=== PATIENT | male | born 1960 | race Caucasian/White ===

== ENCOUNTER → 2016-08-27 | Outpatient (CLI) | payer MEDICARE, OTHER ==
[~2016-08-27] MED LIST: ACETAMINOPHEN325 MG NG; ALBUTEROL; ALBUTEROL17 GM NEB; ALENDRONATE SOD70 MG PO; ASPIRIN PO; BIAXIN GT; BISACODYL10 MG/SUPP PR; CALCIUM CITRATE PO; CALCIUM CITRATE1 T15 PEG; CETA-KLENZ SKI473 ML TOP; COLACE PO; DIASTAT10 MG PR; ERYTHROMYC200 MG/5 M PEG; FAMOTIDINE PO; FAST RELIEF LAX10 MG PR; FLAGYL GT; FLONASE 0.05% N16 G1; FLUOCINOLON118.28 M1 TOP; GAS RELIEF125 M1 NG; GAS X GT; GAS-X166 MG PO; GENTLE LAXATIVE10 MG RC; INVANZ1 G/VIA1 IV; ISORDIL10 MG PEG; ISOSORBIDE MONO10 MG GT; ISOSORBIDE MONO10 MG PO; KEPPRA1000 MG GT; KEPPRA1000 MG PEG; KEPPRA500 M2 DOB; KEPPRA500 MG PEG; METOPROLOL SUCC25 MG GT; METOPROLOL SUCC25 MG PEG; METOPROLOL TAR25 MG GT; MICONAZOLE28 GM TOP; MIRALAX17 G2 PO; MIRALAX17 GM DOB; MIRALAX255 GM GT; MONOKET10 MG GT; MULTI VITAMINS W1 MG PO; MYTAB; NEXIUM GT; NEXIUM40 MG/PACK NG; NITROSTAT0.4 MG SL; OMEGA 3 FISH OI1 CAP GT; OMEGA 3 FISH OI1 CAP PO; OMEGA-31000 M1 PO; OMEPRAZOLE20 M2 PO; OYSTER CALCIUM500 MG PO; PREVACID PO; PROBIOTIC1 EACH PO; PROTONIX PO; REGLAN PO; RISAMINE OINTM113 GM TOP; SELSUN BLUE 1%118 ML TOP; SENNA CONCENTR8.6 MG PO; SENNA S TABLET1 TAB PO; SENNA8.8 MG/5 M GT; SENNA8.8 MG/5 M PEG; SENNA8.8 MG/51 GT; SIMETHICONE125 MG GT; SOD BICARBONATE PO; TEGRETOL PO; TOPAMAX PO; TOPROL XL PO; TYLENOL325 M1 GT; VIBRAMYCIN100 M1 GT
== END | disposition home or self-care (01) ==
LOC: CSSDAY 10:47
DX: M81.0 Age-related osteoporosis without current pathological fracture (principal)
CPT/HCPCS: 96372; J0897

== ENCOUNTER → 2016-12-13 | Outpatient (CLI) | payer MEDICARE, OTHER ==
--- NOTE | ~2016-12-13 | US77 ---
[facility] A Service of [facility] RADIOLOGY TEXT RESULTS PATIENT: PIA HOLCOMB LOCATION: [facility] : 62 UNIT #: [id number] AGE: [address]: Rigo Tai MD SEX: M ORDER DR: [id number] [facility] [address] [place], [place] [address] [id number] O MR#: [id number] Acc #: [id number] NAME: PIA HOLCOMB : 1960 SEX: M STUDY DATE/TIME: 12/13/2016 13:09 UNIT: [facility] ROOM: STUDY DESCRIPTION: US Kidney Bilateral Complete Attending Physician: Rigo Tai Sr., M.D. Referring Physician: Rigo Tai Sr., M.D. Ordering Physician: Rigo Tai Sr., M.D. Primary Care Physician: Yolette Nolen M.D. MEDICAL IMAGING REPORT This report is preliminary unless electronic signature is present EXAM Renal ultrasound 12/13/2016 HISTORY Neurogenic bladder. Follow up for hydronephrosis. FINDINGS The right kidney measures 8.2 cm, while the left kidney measures 8.3 cm in longitudinal dimensions. There is no evidence of hydronephrosis or nephrolithiasis. No cystic or solid mass lesions were seen on either kidney and there is normal renal cortical echogenicity. Images of the bladder are normal. The bladder measured 7.44 cm x 5.41 cm x 7.44 cm for a total bladder volume of 156.8 cm/2. IMPRESSION Negative renal ultrasound. Dictated by... Jarvis Zelaya M.D. THIS IS AN ELECTRONICALLY VERIFIED REPORT Jarvis Zelaya M.D. at 12/14/2016 6:18 AM MANUEL/beatris TD: 12/14/2016 00:00 JOB #: [id number] MEDICAL IMAGING REPORT Page 1 of 1 COPY
== END | disposition home or self-care (01) ==
LOC: CGUS 12:45
DX: N31.9 Neuromuscular dysfunction of bladder, unspecified (principal)
CPT/HCPCS: 76770